=== PATIENT | female | born 1935 | race Two or more races ===

== ENCOUNTER 2020-09-29 10:16 | Emergency (ER) | payer OTHER ==
[~2020-09-29] VITALS: Ht 152.4 cm; Wt 52.2 kg
[2020-09-29] MEDS ORDERED: LIPITOR20 MG (10:59)
[2020-09-29] MEDS ORDERED: COZAAR50 MG (10:59)
[2020-09-29] MEDS ORDERED: JANUMET 50-1,01 EACH (10:59)
[2020-09-29] MEDS ORDERED: OMEPRAZOLE MAGN20 MG (11:00)
[2020-09-29] MEDS ORDERED: EVISTA60 MG (11:00)
[2020-09-29] MEDS ORDERED: ECOTRIN81 MG (11:01)
[2020-09-29] MEDS ORDERED: ZOLOFT25 MG (11:01)
[2020-09-29] MEDS ORDERED: SYNTHROID50 MCG (11:01)
== END 2020-09-29 14:44 | disposition home or self-care (01) ==
LOC: ER 10:16
DX: R42 Dizziness and giddiness (principal)

== ENCOUNTER 2021-03-02 10:33 | Emergency (ER) | payer OTHER ==
[~2021-03-02] VITALS: Ht 160 cm; Wt 47.6 kg
[~2021-03-02 10:33] MED LIST: COZAAR50 MG; ECOTRIN81 MG; EVISTA60 MG; JANUMET 50-1,01 EACH; LIPITOR20 MG; OMEPRAZOLE MAGN20 MG; SYNTHROID50 MCG; ZOLOFT25 MG
== END 2021-03-02 15:08 | disposition designated cancer center or children's hospital (05) ==
LOC: ER 10:33
DX: R42 Dizziness and giddiness (principal); R77.8 Other specified abnormalities of plasma proteins; Z03.818 Encounter for observation for suspected exposure to other biological agents ruled out

== ENCOUNTER 2022-04-04 17:41 | Inpatient (IN) | payer OTHER ==
[~2022-04-04] VITALS: Ht 132.1 cm; Wt 39.0 kg
== END 2022-04-26 22:20 | disposition home or self-care (01) | DRG 64 ==
LOC: ER 17:41 → MEDI 21:19
PROVIDERS: ADMIT Internal Medicine; ATTEND Internal Medicine
PROC: BW28ZZZ Computerized Tomography (CT Scan) of Head (ICD-10-PCS; 2022-04-04)
PROC: BT4JZZZ Ultrasonography of Kidneys and Bladder (ICD-10-PCS; principal; 2022-04-06)
PROC: 30233N1 Transfusion of Nonautologous Red Blood Cells into Peripheral Vein, Percutaneous Approach (ICD-10-PCS; 2022-04-15)
PROC: 02HV33Z Insertion of Infusion Device into Superior Vena Cava, Percutaneous Approach (ICD-10-PCS; 2022-04-23)
DX: I60.9 Nontraumatic subarachnoid hemorrhage, unspecified (principal); E11.00 Type 2 diabetes mellitus with hyperosmolarity without nonketotic hyperglycemic-hyperosmolar coma (NKHHC); E23.2 Diabetes insipidus; N39.0 Urinary tract infection, site not specified; N17.8 Other acute kidney failure; I13.11 Hypertensive heart and chronic kidney disease without heart failure, with stage 5 chronic kidney disease, or end stage renal disease; N18.5 Chronic kidney disease, stage 5; E11.65 Type 2 diabetes mellitus with hyperglycemia; B96.29 Other Escherichia coli [E. coli] as the cause of diseases classified elsewhere; E86.0 Dehydration; G30.8 Other Alzheimer's disease; F02.80 Dementia in other diseases classified elsewhere, unspecified severity, without behavioral disturbance, psychotic disturbance, mood disturbance, and anxiety; E11.22 Type 2 diabetes mellitus with diabetic chronic kidney disease; Z79.4 Long term (current) use of insulin; K21.9 Gastro-esophageal reflux disease without esophagitis; D72.828 Other elevated white blood cell count; D64.89 Other specified anemias